=== PATIENT | female | born 1955 | race Caucasian/White ===

== ENCOUNTER 2016-06-14 15:17 | Emergency (ER) | payer OTHER ==
[2016-06-14 15:21] VITALS: BP 154/84
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
[2016-06-14] MEDS ORDERED: CYCLOBENZAPRINE5 M2 PO (17:49)
[2016-06-14] MEDS ORDERED: NAPROSYN500 M1 PO (17:49)
== END 2016-06-14 18:04 ==
LOC: ERH 15:17
DX: M54.2 Cervicalgia (principal); V43.62XA Car passenger injured in collision with other type car in traffic accident, initial encounter; Y93.9 Activity, unspecified; Y92.9 Unspecified place or not applicable
CPT/HCPCS: 73030-LT